=== PATIENT | female | born 1995 | race Caucasian/White ===

== ENCOUNTER 2017-10-20 08:28 | Inpatient (IN) | payer OTHER ==
[2017-10-20] MEDS ORDERED: BRETHINE IVP PRN (10:25)
[2017-10-20] MEDS ORDERED: NARCAN 0.4 MG/1 ML IV PRN (10:25)
[2017-10-20] MEDS ORDERED: ePHEDrine SULFATE IV PRN (10:25)
[2017-10-20] MEDS ORDERED: BRETHINE SUB-Q PRN (10:25)
[2017-10-20] MEDS ORDERED: MINERAL OIL PO PRN (10:25)
[2017-10-20] MEDS ORDERED: PHENERGAN PO PRN (10:25)
[2017-10-20] MEDS ORDERED: POLYCILLIN/NS 2 GM/100 ML 2 GM/100 ML BAG IV ONE (10:25)
[2017-10-20] MEDS ORDERED: SUBLIMAZE IV PRN (10:25)
[2017-10-20] MEDS ORDERED: XYLOCAINE 2% INFILTRATI ONE (10:25)
--- NOTE | 2017-10-20 10:35 | History and Physical Report ---
History of Present Illness Date of examination: 10/20/17 Date of admission: 10/20/17 08:29 Chief complaint: my water broke History of present illness: 22 yo Fe LMP1, BINH 11/23/17, 36 weeks 3 days presents with SROM, clear fluid at 4 am. O positive, Rubella Immune, GBS unknown. Pt initated early care at [facility]. care has been uneventful. 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 denies: smoking, alcohol abuse, prescription drug abuse, IV drug use - Obstetrical History Expected Date of Delivery: 11/23/17 Actual Gestation: 35 Week(s) 1 Day(s) : 1 Para: 0 Hx # Term Pregnancies: 0 Number of Pregnancies: 0 Spontaneous Abortions: 0 Induced : 0 Number of Living Children: 0 Medications and Allergies Allergies Allergy/AdvReac Type Severity Reaction Status Date / Time No Known Allergies Allergy Unverified 10/20/17 08:54 Active Meds: Active Medications Ephedrine Sulfate (Ephedrine Sulfate) 10 mg IV Q2M PRN PRN Reason: Hypotension Fentanyl (Sublimaze) 100 mcg IV Q2H PRN PRN Reason: Labor Pain Ampicillin Sodium (Polycillin/Ns 2 Gm/100 Ml) 2 gm in 100 mls @ 100 mls/hr IV ONCE ONE; Protocol Stop: 10/20/17 11:24 Lactated Ringer's (Lactated Ringers) 1,000 mls @ 125 mls/hr IV DIRECT ELIAN Oxytocin/Sodium Chloride (Pitocin/Ns 20 Unit/1000ml Drip) 20 units in 1,000 mls @ 125 mls/hr IV DIRECT ELIAN Oxytocin/Sodium Chloride (Pitocin/Ns 30 Unit/500ml) 30 units in 500 mls @ 2 mls /hr IV TITR ELIAN; Protocol Ampicillin Sodium (Ampicillin/Ns 1 Gm/50 Ml) 1 gm in 50 mls @ 100 mls/hr IV Q4HR ELIAN; Protocol Lidocaine (Xylocaine 2%) 20 ml INFILTRATI ONCE ONE Stop: 10/20/17 10:26 Mineral Oil (Mineral Oil) 30 ml PO QHS PRN PRN Reason: Constipation Naloxone HCl (Narcan 0.4 Mg/1 Ml) 0.1 mg IV Q2MIN PRN PRN Reason: Res Rate </= 8 or 02 SAT < 92% Promethazine HCl (Phenergan) 25 mg PO Q6H PRN PRN Reason: Nausea And Vomiting Terbutaline Sulfate (Brethine) 0.25 mg SUB-Q ONCE PRN PRN Reason: Hyperstimulation/Hypertonicity Terbutaline Sulfate (Brethine) 0.25 mg IVP ONCE PRN PRN Reason: Hyperstimulation/Hypertonicity Review of Systems Eyes: normal appearance Cardiovascular: no chest pain, no palpitations, no shortness of breath Respiratory: no shortness of breath Breasts: normal Gastrointestinal: abdominal pain, no nausea, no vomiting, no diarrhea Genitourinary: normal appearance, leakage of fluid, contractions, no vaginal bleeding, no genital sores Integumentary: no rash, no sores, no lesions - Vital Signs Vital signs: Vital Signs Temp Pulse Resp BP 97.8 F 103 H 16 105/79 10/20/17 09:50 10/20/17 09:50 10/20/17 09:50 10/20/17 09:50 Temp Pulse Resp BP Pulse Ox 97.8 F 103 H 16 105/79 10/20/17 09:50 10/20/17 09:50 10/20/17 09:50 10/20/17 09:50 - Physical Exam Breasts: Positive: normal Cardiovascular: Regular rate, Normal S1, Normal S2 Lungs: Positive: Clear to auscultation, Normal air movement Abdomen: Positive: normal appearance, soft, normal bowel sounds, other (Gravid) . Negative: distention Genitourinary (Female): Positive: normal external genitalia, normal perenium Vulva: both: normal Vagina: Positive: normal moisture Uterus: Positive: enlarged (gravid) Anus/Rectum: Positive: normal perianal skin Extremities: Positive: normal Deep Tendon Reflex Grade: Normal +2 - Obstetrical FHR: category 1 Uterine Contraction Monitor Mode: External Uterine Contraction Pattern: Irregular Uterine Contraction Intensity: Moderate Results All other labs normal. Assessment and Plan A: , 36w3d SROM clear fluid category 1 tracing GBS unknown P: Admit to L&D GBS prophylaxis May have IV pain med/epidural PRN Pitocin Augmentation Anticipate
[2017-10-20] MEDS ORDERED: PITOCin/NS 30 UNIT/500ML 30 UNITS/500 ML BAG IV SCH (11:00)
[2017-10-20] MEDS ORDERED: PITOCin/NS 20 UNIT/1000ML DRIP 20 UNITS/1,000 ML BAG IV SCH (11:00)
[2017-10-20] MEDS ORDERED: LACTATED RINGERS 1,000 ML IV SCH (11:00)
[2017-10-20 11:32] LABS: Hematocrit 39.1 % (30.3-42.9); Mean Corpuscular HGB Conc 33 % (30-34); Mean Corpuscular Hemoglobin 30 pg (28-32); Mean Corpuscular Volume 91 fl (79-97); Platelet Count 287 K/mm3 (140-440); Red Blood Count 4.32 M/mm3 (3.65-5.03)
[2017-10-20] MEDS: AMPICILLIN/NS 1 GM/50 ML 1 GM/50 ML BAG IV SCH ×2 (16:54→20:51)
--- NOTE | 2017-10-20 16:54 | Ultrasound Report ---
FINAL REPORT EXAM: US OB LIMITED HISTORY: presentation TECHNIQUE: Limited obstetrical ultrasound for presentation PRIORS: None. FINDINGS: Presentation: Cephalic Cardiac motion: 139 BPM using M-mode doppler IMPRESSION: Limited exam. presentation is cephalic.
--- NOTE | 2017-10-21 01:04 | Procedure Note ---
OB Delivery Note - Vaginal Delivery presentation: vertex Delivery position: OA Intrapartum events: labor-<37 weeks Delivery induction: none Delivery augmentation: pitocin Delivery monitor: external FHT, external uterine Route of delivery: Delivery placenta: spontaneous Delivery cord: other (short cord) Episiotomy: none (Spontaneous vaginal delivery of liveborn female weighing 5 lb. 2 oz. over intact perineum at 21:24 with apgars of 8 and 9. Controlled gentle delivery of head, shoulders, and body. Short umbilical cord noted. Baby bulb suctioned. Spontaneous cry and respirations. 3 vc double clamped and cut and baby taken to radiant warmer for further suctioning. Spontaneous delivery of intact placenta and membranes by bailey mechanism. EBL 250 ml. Pitocin to IV fluids after delivery of placenta. Fundus firm and midline. Vaginal sweep negative. No lacerations noted on careful exam. Mother plans to breastfeed. Mother is O+; cord blood was obtained. ) Delivery laceration: none
[2017-10-21] MEDS ORDERED: COLACE PO PRN (03:24)
[2017-10-21] MEDS ORDERED: MOTRIN PO PRN (03:24)
[2017-10-21] MEDS ORDERED: BOOSTRIX IM ONE (06:00)
--- NOTE | 2017-10-21 10:10 | Progress Note ---
Subjective - Subjective Date of service: 10/21/17 Principal diagnosis: day 1 Interval history: Patient is day 1 S/P spontaneous vaginal delivery. Patient reports she is feeling well. She denies headache, chest pain, cough, shortness of breath , abdominal pain, nausea or vomiting, leg pain, or heavy bleeding. She reports a small amount of lochia. She is voiding without difficulty and tolerating a regular diet. Ambulating well. Patient reports: appetite normal, voiding normally, flatus, ambulating normally [place]: doing well Objective - Vital Signs Latest vital signs: Vital Signs Temp Pulse Resp BP BP Pulse Ox 10/21/17 04:45 97.2 F L 85 18 96/65 98 10/20/17 23:39 99.4 F 77 18 95/59 98 10/20/17 22:50 82 99 10/20/17 22:48 77 100/61 10/20/17 22:47 96 H 73 L 10/20/17 22:45 82 98 10/20/17 22:40 85 99 10/20/17 22:35 86 98 10/20/17 22:34 100 H 92/62 10/20/17 22:31 57 L 92 10/20/17 22:30 93 H 99 10/20/17 22:26 79 99 10/20/17 22:21 92 H 98 10/20/17 22:20 88 93 10/20/17 22:19 75 95/63 10/20/17 22:15 91 H 100 10/20/17 22:14 86 92 10/20/17 22:10 87 97 10/20/17 22:06 91 H 93 10/20/17 22:04 102 H 112/59 10/20/17 22:01 100 H 99 10/20/17 22:00 107 H 87 10/20/17 21:56 84 100 10/20/17 21:51 74 100 10/20/17 21:48 73 L 10/20/17 21:47 85 122/69 10/20/17 21:46 93 H 98 10/20/17 21:41 95 H 99 10/20/17 21:27 97 H 99 10/20/17 21:22 86 100 10/20/17 21:17 73 100 10/20/17 21:12 66 100 10/20/17 21:07 68 100 10/20/17 21:02 80 99 10/20/17 20:57 81 100 10/20/17 20:52 71 100 10/20/17 20:47 83 100 10/20/17 20:42 70 99 10/20/17 20:38 70 90 10/20/17 20:37 64 100 10/20/17 20:36 61 108/63 10/20/17 20:32 66 100 10/20/17 20:27 71 100 10/20/17 20:22 65 102/59 99 10/20/17 20:20 66 94 10/20/17 20:17 76 99 10/20/17 20:12 80 87 10/20/17 20:10 72 91 10/20/17 20:07 70 97 10/20/17 20:06 72 94/53 10/20/17 20:04 98 H 94 10/20/17 20:02 83 96 10/20/17 19:58 79 80 L 10/20/17 19:57 70 98 10/20/17 19:52 87 100 10/20/17 19:47 78 82 L 10/20/17 19:46 83 90 10/20/17 19:42 83 100 10/20/17 19:37 96 H 99 10/20/17 19:32 70 100 10/20/17 19:31 91 10/20/17 19:22 82 88 10/20/17 19:21 65 95/59 10/20/17 19:19 64 87 10/20/17 19:16 78 75 L 10/20/17 19:14 64 96 10/20/17 19:10 89 79 L 10/20/17 19:09 86 99 10/20/17 19:07 83 108/71 10/20/17 19:05 75 82 L 10/20/17 19:04 72 94 10/20/17 18:59 68 100 10/20/17 18:57 65 72 L 10/20/17 18:54 80 99 10/20/17 18:50 69 107/72 10/20/17 18:49 81 98 10/20/17 18:44 82 20 107/72 98 10/20/17 18:39 67 99 10/20/17 18:34 65 100 10/20/17 18:29 77 98 10/20/17 18:24 68 99 10/20/17 18:22 67 94/58 10/20/17 18:19 68 99 10/20/17 18:14 70 99 10/20/17 18:09 77 99 10/20/17 18:06 80 94/51 10/20/17 18:04 76 99 10/20/17 17:59 79 99 10/20/17 17:54 81 98 10/20/17 17:52 73 92/64 10/20/17 17:49 74 99 10/20/17 17:47 97.9 F 20 10/20/17 17:44 70 20 99 10/20/17 17:39 78 96 10/20/17 17:36 69 101/68 10/20/17 17:34 70 99 10/20/17 17:29 78 98 10/20/17 17:24 71 99 10/20/17 17:21 74 191/80 10/20/17 17:19 70 99 10/20/17 17:14 73 99 10/20/17 17:09 72 99 10/20/17 17:04 64 100 10/20/17 16:59 78 99 10/20/17 16:51 73 99 10/20/17 16:46 76 99 10/20/17 16:41 76 99 10/20/17 16:37 76 98/66 10/20/17 16:36 78 99 10/20/17 16:35 73 100/65 Intake and Output 10/20/17 10/21/17 10/21/17 23:59 07:59 15:59 Intake Total 90.2 240 Balance 90.2 240 Intake: IV 90.2 AMPICILLIN/NS 1 GM/50 ML 50 1 gm In 50 ml @ 100 mls/ hr IV Q4HR [facility] Rx#: [id number] PITOCin/NS 30 UNIT/500ML 40.2 30 units In 500 ml @ 2 mls/hr IV TITR [facility] Rx#: [id number] Oral 240 Other: Total, Intake Amount 240 # Voids Void 1 Estimated Blood Loss 200 - Exam Cardiovascular: Present: Regular rate, Normal S1, Normal S2 Lungs: Present: Clear to auscultation Abdomen: Present: normal appearance, soft. Absent: distention, tenderness, guarding Uterus: Present: normal, firm, fundal height below umbilicus. Absent: bogginess , tenderness Extremities: Present: normal. Absent: tenderness, edema
[2017-10-21 22:26] LABS: Hematocrit 36.5 % (30.3-42.9); Hemoglobin 12.2 gm/dl (10.1-14.3)
[2017-10-22] MEDS ORDERED: BOOSTRIX IM ONE (06:15)
--- NOTE | 2017-10-22 12:09 | Progress Note ---
Assessment and Plan A: day 2. Normal course. P: Discharge patient to home when baby is able to go. Discussed with pt. discharge instructions and warning signs. Advised pt. to avoid IC for 6-8 weeks. Contraception discussed but pt. states she desires to wait until her 6 week visit at the clinic to begin contraception. Advised pt. to call the clinic tomorrow and make an appointment for her 6 week visit. Pt. voiced understanding of discharge instructions and pt.'s questions solicited and answered. Subjective - Subjective Date of service: 10/22/17 Principal diagnosis: day 2 Interval history: Patient is day 2 S/P spontaneous vaginal delivery. Patient states she is feeling well. Patient reports small amount of lochia and no abdominal or pelvic pain. Pt. is ambulating well. She is voiding without difficulty and tolerating a regular diet. She is bottlefeeding and . Pt. denies headache, chest pain, shortness of breath, cough, leg pain, or heavy bleeding. She denies symptoms of depression. Pt. desires discharge when baby is able to be discharged. Patient reports: appetite normal, voiding normally, pain well controlled, ambulating normally : doing well Objective - Vital Signs Latest vital signs: Vital Signs Temp Pulse Resp BP 10/22/17 00:00 98.0 F 80 18 99/59 10/21/17 16:30 98.3 F 77 18 98/67 10/21/17 13:05 98.3 F 75 18 98/65 Intake and Output 10/21/17 10/22/17 10/22/17 23:59 07:59 15:59 Intake Total 240 Balance 240 Intake: Oral 240 Other: Total, Intake Amount 240 # Voids Void 1 1 - Exam Breasts: Present: deferred Cardiovascular: Present: Regular rate Lungs: Present: Clear to auscultation Abdomen: Present: normal appearance, soft. Absent: distention, tenderness, guarding, rigidity Uterus: Present: normal, firm, fundal height below umbilicus. Absent: bogginess , tenderness Extremities: Present: normal. Absent: tenderness, edema
--- NOTE | 2017-10-22 12:16 | Discharge Summary ---
Providers - Providers Date of Admission: 10/20/17 08:29 Date of discharge: 10/23/17 Attending physician: LAUREN JEFFERS MD 10/21/17 03:27 Consult to [employer] [CONS] Routine Reason For Exam: Primary care physician: LAUREN JEFFERS MD Hospitalization Reason for admission: active labor, IUP - Delivery: Episiotomy: none Laceration: none Other procedures: none complications: none Discharge diagnosis: delivery baby: female Pertinent studies: Labs Hospital course: Uncomplicated hospital course. Condition at discharge: Good Disposition: DC-01 TO HOME OR SELFCARE - Discharge Diagnoses (1) Spontaneous vaginal delivery Status: Acute Plan - Provider Discharge Summary Activity: routine, no sex for 6 weeks, no heavy lifting 4 weeks, no strenuous exercise Diet: routine Instructions: routine Additional instructions: [] - Follow up plan Follow up: LAUREN JEFFERS MD [Primary Care Provider] - 6 Weeks
[2017-10-22 16:48] VITALS: BP 96/70
== END 2017-10-22 18:40 | disposition home or self-care (01) | DRG 775 ==
LOC: TRG 08:28 → LD 08:29 → OB 10-21
PROVIDERS: ADMIT Obstetrics & Gynecology; ATTEND Obstetrics & Gynecology
PROC: 10E0XZZ Delivery of Products of Conception, External Approach (ICD-10-PCS; 2017-10-20)
PROC: 3E0R3BZ Introduction of Anesthetic Agent into Spinal Canal, Percutaneous Approach (ICD-10-PCS; 2017-10-20)
PROC: 00HU33Z Insertion of Infusion Device into Spinal Canal, Percutaneous Approach (ICD-10-PCS; 2017-10-20)
PROC: 3E0234Z Introduction of Serum, Toxoid and Vaccine into Muscle, Percutaneous Approach (ICD-10-PCS; principal; 2017-10-22)
DX: O60.14X0 Preterm labor third trimester with preterm delivery third trimester, not applicable or unspecified (principal); Z37.0 Single live birth; Z23 Encounter for immunization; Z83.3 Family history of diabetes mellitus; Z3A.35 35 weeks gestation of pregnancy
CPT/HCPCS: 36415; 76815; 85014; 85018; 85027; 86592; 86850; 86900; 86901; 88307; 90471; 90715; J0290; J2590; J3010; J7120